=== PATIENT | male | born 1955 | race African-American/Black ===

== ENCOUNTER 2017-06-12 06:55 | Inpatient (IN) | payer MEDICARE, BC, MEDICAID ==
[2017-06-12 07:25] LABS: ADD MAN DIFF? NO
[2017-06-12 07:29] LABS: WHITE BLOOD COUNT 6.7 10^3/ul (4.8-10.8)
[2017-06-12 07:29] LABS: BASOPHILS % 0.4 % (0.0-2.0); EOSINOPHILS # 0.1 10^3/ul (0.0-0.5); EOSINOPHILS % 1.6 % (0.0-7.0); HEMATOCRIT 40.1 % (42.0-52.0); HEMOGLOBIN 13.2 g/dl (14.0-18.0); LYMPHOCYTES # 1.3 10^3/ul (0.8-2.9); LYMPHOCYTES % 19.1 % (15.0-51.0); MEAN CORPUSCULAR HGB CONC 32.9 g/dl (32.0-37.0); MEAN CORPUSCULAR VOLUME 88.1 fl (82.0-101.0); MEAN PLATELET VOLUME 11.7 fl (7.4-10.4); MONOCYTE # 0.5 10^3/ul (0.3-0.9); MONOCYTES % 7.8 % (0.0-11.0); NEUTROPHIL # 4.7 10^3/ul (1.6-7.5); PLATELET COUNT 194 10^3/UL (140-415); RED BLOOD COUNT 4.55 10^6/ul (4.70-6.10); RED CELL DISTRIBUTION WIDTH 14.1 % (11.5-14.5)
[2017-06-12] MEDS: ASPIRIN 81 MG TAB PO (07:29)
[2017-06-12 07:48] LABS: ALANINE AMINOTRANSFERASE 20 IU/L (13-69); ALBUMIN 4.1 g/dl (3.3-4.9); ALBUMIN/GLOBULIN RATIO 1.36; ALKALINE PHOSPHATASE 95 IU/L (42-121); ANION GAP 20 (8-16); ASPARTATE AMINO TRANSFERASE 13 IU/L (15-46); BILIRUBIN,INDIRECT 0.2 mg/dl (0-1.1); BILIRUBIN,TOTAL 0.2 mg/dl (0.2-1.3); BLOOD UREA NITROGEN 14 mg/dl (7-20); CALCIUM 9.4 mg/dl (8.4-10.2); CARBON DIOXIDE 21 mmol/L (21-31); CHLORIDE 109 mmol/L (97-110); CREATININE 1.05 mg/dl (0.61-1.24); GLUCOSE 125 mg/dl (70-220); INR 1.02; POTASSIUM 4.1 mmol/L (3.5-5.1); PROTIME 13.5 Sec (11.9-14.9); PT RATIO 1.1; SODIUM 146 mmol/L (135-144); TOTAL PROTEIN 7.1 g/dl (6.1-8.1)
[2017-06-12 07:59] LABS: B-TYPE NATRIURETIC PEPTIDE 66 PG/ML (0-125)
[2017-06-12 08:01] LABS: TROPONIN-I < 0.012 ng/ml (0.00-0.12)
[2017-06-12] MEDS: KETOROLAC 15 MG INJ IV (09:22)
[2017-06-12] MEDS ORDERED: DOCUSATE SODIUM 100 MG CAP PO (11:30)
[2017-06-12] MEDS ORDERED: BISACODYL (EC) 5 MG TAB PO (11:30)
[2017-06-12] MEDS ORDERED: MAGNESIUM HYDROXIDE 30ML CUP PO (11:30)
[2017-06-12] MEDS ORDERED: NACL 0.9% 3 ML SYG IV (11:30)
[2017-06-12] MEDS ORDERED: ACETAMINOPHEN 325 MG TAB PO ×2 (11:30)
[2017-06-12] MEDS ORDERED: HYDROCODONE/APAP (5/325) TAB PO (11:30)
[2017-06-12] MEDS: HYPOGLYCEMIA PROTOCOL when Glucose is <70 mg/dL or symptomatic <90 mg/dL. XX (11:30)
[2017-06-12] MEDS ORDERED: ONDANSETRON 4 MG INJ IV (11:30)
[2017-06-12] MEDS: Discontinue current oral sulfonylureas (glyburide, glipizide, and/or glimepiride) prior to XX (11:30)
[2017-06-12 11:35] LABS: D-DIMER < 220.00 ng/ml (<460)
[2017-06-12] MEDS: INSULIN ASPART [NOVOLOG] 3 ML PEN SC ×3 (12:00→20:49)
[2017-06-12] MEDS ORDERED: DEXTROSE 50% 50 ML SYRINGE IV ×2 (12:30)
[2017-06-12] MEDS ORDERED: GLUCOSE GEL 15 GRAM TUBE BUCCAL (12:30)
[2017-06-12] MEDS ORDERED: GLUCOSE GEL 15 GRAM TUBE PO ×2 (12:30)
[2017-06-12] MEDS ORDERED: GLUCAGON 1 MG INJ IM (12:30)
[2017-06-12] MEDS: BRIMONIDINE 0.2% 5 ML BTL BOTH EYES ×2 (14:00→22:25)
[2017-06-12 15:17] LABS: CREATINE KINASE 57 IU/L (23-200)
[2017-06-12 15:38] LABS: CK-MB 0.59 ng/ml (0.0-2.4); TROPONIN-I < 0.012 ng/ml (0.00-0.12)
[2017-06-12] MEDS ORDERED: morphine 2 MG INJ IV (17:00)
[2017-06-12] MEDS: morphine 2 MG INJ IV ×2 (18:18→22:26)
[2017-06-12] MEDS: APIXABAN 5 MG TABLET PO (20:48)
[2017-06-12] MEDS: ATORVASTATIN 10 MG TAB PO (20:48)
[2017-06-12] MEDS ORDERED: TRAVOPROST 0.004% 2.5 ML OPH BOTH EYES (21:00)
[2017-06-12] MEDS: DORZOLAMIDE/TIMOLOL 10 ML OPH BOTH EYES (21:00)
[2017-06-12] MEDS: LATANOPROST 0.005% 2.5 ML OPH BOTH EYES (21:47)
[2017-06-13 01:21] LABS: CREATINE KINASE 51 IU/L (23-200)
[2017-06-13 01:34] LABS: CK INDEX 1.1
[2017-06-13 01:35] LABS: CK-MB 0.57 ng/ml (0.0-2.4); TROPONIN-I < 0.012 ng/ml (0.00-0.12)
[2017-06-13] MEDS: ACCU-CHEK XX (02:00)
[2017-06-13] MEDS: BRIMONIDINE 0.2% 5 ML BTL BOTH EYES ×3 (05:43→23:26)
[2017-06-13 06:08] LABS: ADD MAN DIFF? NO
[2017-06-13 06:14] LABS: BASOPHILS % 0.6 % (0.0-2.0); EOSINOPHILS # 0.2 10^3/ul (0.0-0.5); EOSINOPHILS % 2.8 % (0.0-7.0); HEMOGLOBIN 11.9 g/dl (14.0-18.0); LYMPHOCYTES # 1.5 10^3/ul (0.8-2.9); LYMPHOCYTES % 27.3 % (15.0-51.0); MEAN CORPUSCULAR HEMOGLOBIN 28.3 pg (29.0-33.0); MEAN CORPUSCULAR HGB CONC 32.2 g/dl (32.0-37.0); MEAN CORPUSCULAR VOLUME 88.1 fl (82.0-101.0); MEAN PLATELET VOLUME 11.7 fl (7.4-10.4); MONOCYTE # 0.6 10^3/ul (0.3-0.9); MONOCYTES % 10.8 % (0.0-11.0); NEUTROPHIL # 3.1 10^3/ul (1.6-7.5); NEUTROPHILS % 58.1 % (39.0-77.0); PLATELET COUNT 167 10^3/UL (140-415); RED CELL DISTRIBUTION WIDTH 14.4 % (11.5-14.5)
[2017-06-13 06:14] LABS: WHITE BLOOD COUNT 5.4 10^3/ul (4.8-10.8)
[2017-06-13 06:28] LABS: HEMOGLOBIN A1C 6.6 % (0-5.9)
[2017-06-13 06:32] LABS: CREATINE KINASE 46 IU/L (23-200)
[2017-06-13 06:42] LABS: CK INDEX 1.3
[2017-06-13 06:45] LABS: CK-MB 0.58 ng/ml (0.0-2.4); TROPONIN-I < 0.012 ng/ml (0.00-0.12)
[2017-06-13] MEDS: INSULIN ASPART [NOVOLOG] 3 ML PEN SC ×4 (08:00→20:40)
[2017-06-13 08:16] LABS: ANION GAP 13 (8-16); BLOOD UREA NITROGEN 16 mg/dl (7-20); CALCIUM 9.1 mg/dl (8.4-10.2); CARBON DIOXIDE 22 mmol/L (21-31); CHLORIDE 110 mmol/L (97-110); CHOL/HDL RATIO 5.4 RATIO; CHOLESTEROL 153 mg/dl (100-200); CREATININE 0.99 mg/dl (0.61-1.24); GLUCOSE 115 mg/dl (70-220); HDL CHOLESTEROL 28 mg/dl (30-78); LDL CHOLESTEROL,CALCULATED 92 mg/dl; MAGNESIUM 2.1 mg/dl (1.7-2.5); POTASSIUM 4.1 mmol/L (3.5-5.1); SODIUM 141 mmol/L (135-144); TRIGLYCERIDES 167 mg/dl (0-149)
[2017-06-13] MEDS: TAMSULOSIN (SR) 0.4 MG CAP PO (08:54)
[2017-06-13] MEDS: APIXABAN 5 MG TABLET PO ×2 (08:54→20:32)
[2017-06-13] MEDS: morphine 2 MG INJ IV ×2 (08:54→20:31)
[2017-06-13] MEDS: DORZOLAMIDE/TIMOLOL 10 ML OPH BOTH EYES ×2 (10:50→20:36)
[2017-06-13 11:50] LABS: CREATINE KINASE 53 IU/L (23-200)
[2017-06-13 12:03] LABS: CK INDEX 1.3
[2017-06-13 12:15] LABS: CK-MB 0.68 ng/ml (0.0-2.4); TROPONIN-I < 0.012 ng/ml (0.00-0.12)
[2017-06-13] MEDS: ATORVASTATIN 10 MG TAB PO (20:31)
[2017-06-13] MEDS: LATANOPROST 0.005% 2.5 ML OPH BOTH EYES (20:32)
[2017-06-14] MEDS: morphine 2 MG INJ IV ×5 (00:44→23:21)
[2017-06-14] MEDS: ACCU-CHEK XX (02:00)
[2017-06-14] MEDS: BRIMONIDINE 0.2% 5 ML BTL BOTH EYES ×3 (06:00→23:09)
[2017-06-14] MEDS: INSULIN ASPART [NOVOLOG] 3 ML PEN SC ×4 (08:00→21:00)
[2017-06-14 08:01] LABS: ANION GAP 16 (8-16); BLOOD UREA NITROGEN 14 mg/dl (7-20); CALCIUM 9.1 mg/dl (8.4-10.2); CARBON DIOXIDE 23 mmol/L (21-31); CHLORIDE 108 mmol/L (97-110); CREATININE 1.02 mg/dl (0.61-1.24); GLUCOSE 97 mg/dl (70-220); PHOSPHORUS 3.9 mg/dl (2.5-4.9); POTASSIUM 3.7 mmol/L (3.5-5.1); SODIUM 143 mmol/L (135-144)
[2017-06-14] MEDS: APIXABAN 5 MG TABLET PO ×2 (08:45→20:57)
[2017-06-14] MEDS: TAMSULOSIN (SR) 0.4 MG CAP PO (08:45)
[2017-06-14] MEDS: DORZOLAMIDE/TIMOLOL/PF 0.2 ML DROPERETTE BOTH EYES ×2 (12:17→23:10)
[2017-06-14] MEDS: ATORVASTATIN 10 MG TAB PO (20:57)
[2017-06-14] MEDS: LATANOPROST 0.005% 2.5 ML OPH BOTH EYES (23:10)
[2017-06-15] MEDS: ACCU-CHEK XX (02:00)
[2017-06-15] MEDS: morphine 2 MG INJ IV ×4 (03:38→18:34)
[2017-06-15] MEDS: BRIMONIDINE 0.2% 5 ML BTL BOTH EYES ×3 (06:37→21:58)
[2017-06-15] MEDS: INSULIN ASPART [NOVOLOG] 3 ML PEN SC ×4 (08:00→21:00)
[2017-06-15] MEDS: TAMSULOSIN (SR) 0.4 MG CAP PO (08:31)
[2017-06-15] MEDS: DORZOLAMIDE/TIMOLOL/PF 0.2 ML DROPERETTE BOTH EYES ×2 (08:31→21:00)
[2017-06-15] MEDS: APIXABAN 5 MG TABLET PO ×2 (08:31→21:00)
[2017-06-15] MEDS: LATANOPROST 0.005% 2.5 ML OPH BOTH EYES (21:58)
[2017-06-15] MEDS: ATORVASTATIN 10 MG TAB PO (21:58)
[2017-06-16] MEDS: morphine 2 MG INJ IV ×5 (00:57→22:55)
[2017-06-16] MEDS: ACCU-CHEK XX (02:00)
[2017-06-16] MEDS: BRIMONIDINE 0.2% 5 ML BTL BOTH EYES ×4 (06:34→22:55)
[2017-06-16] MEDS: INSULIN ASPART [NOVOLOG] 3 ML PEN SC ×4 (08:00→21:00)
[2017-06-16] MEDS: TAMSULOSIN (SR) 0.4 MG CAP PO (08:07)
[2017-06-16] MEDS: DORZOLAMIDE/TIMOLOL/PF 0.2 ML DROPERETTE BOTH EYES ×2 (08:07→21:22)
[2017-06-16] MEDS: APIXABAN 5 MG TABLET PO ×2 (08:07→21:22)
[2017-06-16] MEDS: ATORVASTATIN 10 MG TAB PO (21:22)
[2017-06-16] MEDS: LATANOPROST 0.005% 2.5 ML OPH BOTH EYES (21:22)
[2017-06-17] MEDS: ACCU-CHEK XX (02:00)
[2017-06-17] MEDS: morphine 2 MG INJ IV ×5 (03:30→22:30)
[2017-06-17] MEDS: INSULIN ASPART [NOVOLOG] 3 ML PEN SC ×4 (08:00→20:40)
[2017-06-17] MEDS: APIXABAN 5 MG TABLET PO ×2 (08:31→20:39)
[2017-06-17] MEDS: DORZOLAMIDE/TIMOLOL/PF 0.2 ML DROPERETTE BOTH EYES ×2 (08:31→20:39)
[2017-06-17] MEDS: TAMSULOSIN (SR) 0.4 MG CAP PO (08:31)
[2017-06-17] MEDS: BRIMONIDINE 0.2% 5 ML BTL BOTH EYES ×2 (12:39→20:39)
[2017-06-17] MEDS: ATORVASTATIN 10 MG TAB PO (20:39)
[2017-06-17] MEDS: LATANOPROST 0.005% 2.5 ML OPH BOTH EYES (20:40)
[2017-06-18] MEDS: ACCU-CHEK XX (02:00)
[2017-06-18] MEDS: morphine 2 MG INJ IV (03:47)
[2017-06-18] MEDS: INSULIN ASPART [NOVOLOG] 3 ML PEN SC ×2 (08:00→11:22)
[2017-06-18] MEDS: BRIMONIDINE 0.2% 5 ML BTL BOTH EYES (08:20)
[2017-06-18] MEDS: APIXABAN 5 MG TABLET PO (08:20)
[2017-06-18] MEDS: DORZOLAMIDE/TIMOLOL/PF 0.2 ML DROPERETTE BOTH EYES (08:20)
[2017-06-18] MEDS: TAMSULOSIN (SR) 0.4 MG CAP PO (08:20)
== END 2017-06-18 14:05 | disposition home or self-care (01) | DRG 313 ==
LOC: E/R 06:55 → MS4 11:51
DX: R07.89 Other chest pain (principal); I44.1 Atrioventricular block, second degree; R00.1 Bradycardia, unspecified; I10 Essential (primary) hypertension; Z86.711 Personal history of pulmonary embolism; Z95.828 Presence of other vascular implants and grafts; E78.5 Hyperlipidemia, unspecified; H40.9 Unspecified glaucoma; N40.0 Benign prostatic hyperplasia without lower urinary tract symptoms; Z79.01 Long term (current) use of anticoagulants
CPT/HCPCS: 36415; 71045; 80048; 80053; 80061; 82550; 82553; 82962; 83036; 83735; 83880; 84100; 84443; 84484; 85025; 85378; 85610; 93005; 93306; 96374; 99285-25; G0378

== ENCOUNTER 2017-07-15 18:12 | Emergency (ER) | payer MEDICARE, BC | END 2017-07-15 18:28 | disposition left against medical advice (07) | LOC: E/R 18:12 | DX: R07.9 Chest pain, unspecified (principal); G89.4 Chronic pain syndrome; E11.9 Type 2 diabetes mellitus without complications; Z79.84 Long term (current) use of oral hypoglycemic drugs | CPT/HCPCS: 93005; 99283-25 ==

== ENCOUNTER → 2017-09-22 13:00 | Inpatient (IN) | payer OTHER, BC, MEDICARE ==
[2017-09-21] MEDS: HEPARIN 5,000 UNIT/0.5 ML VIAL SC (00:30)
[2017-09-21] MEDS: DEXTROSE 5%-0.45% NACL 1,000 ML IV ×2 (00:45→12:48)
[2017-09-21] MEDS: INSULIN ASPART [NOVOLOG] 3 ML PEN SC ×6 (01:00→20:28)
[2017-09-21 01:12] LABS: ADD MAN DIFF? NO
[2017-09-21 01:17] LABS: BASOPHILS % 0.5 % (0.0-2.0); EOSINOPHILS # 0.2 10^3/ul (0.0-0.5); EOSINOPHILS % 3.8 % (0.0-7.0); HEMATOCRIT 34.8 % (42.0-52.0); HEMOGLOBIN 10.9 g/dl (14.0-18.0); LYMPHOCYTES # 1.3 10^3/ul (0.8-2.9); LYMPHOCYTES % 23.6 % (15.0-51.0); MEAN CORPUSCULAR HEMOGLOBIN 27.2 pg (29.0-33.0); MEAN CORPUSCULAR HGB CONC 31.3 g/dl (32.0-37.0); MEAN CORPUSCULAR VOLUME 86.8 fl (82.0-101.0); MEAN PLATELET VOLUME 11.6 fl (7.4-10.4); MONOCYTE # 0.7 10^3/ul (0.3-0.9); MONOCYTES % 13.2 % (0.0-11.0); NEUTROPHIL # 3.3 10^3/ul (1.6-7.5); NEUTROPHILS % 58.7 % (39.0-77.0); PLATELET COUNT 179 10^3/UL (140-415); RED BLOOD COUNT 4.01 10^6/ul (4.70-6.10); RED CELL DISTRIBUTION WIDTH 14.5 % (11.5-14.5)
[2017-09-21 01:17] LABS: WHITE BLOOD COUNT 5.5 10^3/ul (4.8-10.8)
[2017-09-21 01:42] LABS: ALANINE AMINOTRANSFERASE 22 IU/L (13-69); ALBUMIN 3.4 g/dl (3.3-4.9); ALKALINE PHOSPHATASE 54 IU/L (42-121); ANION GAP 11 (8-16); ASPARTATE AMINO TRANSFERASE 14 IU/L (15-46); BILIRUBIN,INDIRECT 0.4 mg/dl (0-1.1); BILIRUBIN,TOTAL 0.4 mg/dl (0.2-1.3); BLOOD UREA NITROGEN 12 mg/dl (7-20); CALCIUM 8.8 mg/dl (8.4-10.2); CARBON DIOXIDE 25 mmol/L (21-31); CHLORIDE 108 mmol/L (97-110); CHOL/HDL RATIO 4.3 RATIO; CHOLESTEROL 142 mg/dl (100-200); CREATINE KINASE 66 IU/L (23-200); GLUCOSE 130 mg/dl (70-220); HDL CHOLESTEROL 33 mg/dl (30-78); LDL CHOLESTEROL,CALCULATED 73 mg/dl; PHOSPHORUS 3.3 mg/dl (2.5-4.9); POTASSIUM 4.1 mmol/L (3.5-5.1); SODIUM 140 mmol/L (135-144); TRIGLYCERIDES 181 mg/dl (0-149)
[2017-09-21 01:54] LABS: CK INDEX 1.2; CK-MB 0.78 ng/ml (0.0-2.4); TROPONIN-I < 0.010 ng/ml (0.000-0.120)
[2017-09-21] MEDS: ACCU-CHEK XX (02:00)
[2017-09-21 04:06] LABS: HEMOGLOBIN A1C 6.7 % (0-5.9)
[2017-09-21] MEDS: ISOSORBIDE MONONITRATE(SR)30 MG TAB PO (09:03)
[2017-09-21] MEDS: ASPIRIN (EC) 81 MG TAB PO (09:03)
[2017-09-21] MEDS: morphine 2 MG INJ IV ×4 (09:07→20:29)
[2017-09-21] MEDS: RANOLAZINE (SR) 500 MG TAB PO ×2 (11:19→20:28)
[2017-09-21] MEDS: ACETYLCYSTEINE 600 MG CAP PO ×2 (11:19→20:28)
[2017-09-21] MEDS: ENOXAPARIN 60 MG/0.6 ML SYG SC (11:29)
[2017-09-21 14:59] LABS: CREATINE KINASE 63 IU/L (23-200)
[2017-09-21 15:12] LABS: CK INDEX 0.8; CK-MB 0.53 ng/ml (0.0-2.4); TROPONIN-I < 0.010 ng/ml (0.000-0.120)
[2017-09-21] MEDS: FAMOTIDINE 20 MG TAB PO (18:17)
[2017-09-21] MEDS: predniSONE 20 MG TAB PO (18:17)
[2017-09-21] MEDS: ATORVASTATIN 20 MG TAB PO (20:30)
[2017-09-22] MEDS: predniSONE 20 MG TAB PO ×2 (01:00→07:00)
[2017-09-22] MEDS: FAMOTIDINE 20 MG TAB PO ×2 (01:00→07:00)
[2017-09-22] MEDS: INSULIN ASPART [NOVOLOG] 3 ML PEN SC ×3 (01:00→09:00)
[2017-09-22] MEDS: morphine 2 MG INJ IV ×2 (02:00→05:05)
[2017-09-22] MEDS: ACCU-CHEK XX (02:00)
[2017-09-22] MEDS: DEXTROSE 5%-0.45% NACL 1,000 ML IV (02:10)
[2017-09-22 08:30] LABS: ADD MAN DIFF? NO
[2017-09-22 08:35] LABS: ABNORMAL IP MESSAGE 1; BASOPHILS % 0.2 % (0.0-2.0); HEMATOCRIT 40.7 % (42.0-52.0); HEMOGLOBIN 12.8 g/dl (14.0-18.0); LYMPHOCYTES # 0.5 10^3/ul (0.8-2.9); LYMPHOCYTES % 5.1 % (15.0-51.0); MEAN CORPUSCULAR HEMOGLOBIN 26.9 pg (29.0-33.0); MEAN CORPUSCULAR HGB CONC 31.4 g/dl (32.0-37.0); MEAN CORPUSCULAR VOLUME 85.5 fl (82.0-101.0); MEAN PLATELET VOLUME 12.2 fl (7.4-10.4); MONOCYTE # 0.3 10^3/ul (0.3-0.9); MONOCYTES % 3.2 % (0.0-11.0); NEUTROPHIL # 9.2 10^3/ul (1.6-7.5); NEUTROPHILS % 91.2 % (39.0-77.0); PLATELET COUNT 215 10^3/UL (140-415); POSITIVE DIFF @See below; RED BLOOD COUNT 4.76 10^6/ul (4.70-6.10); RED CELL DISTRIBUTION WIDTH 14.6 % (11.5-14.5)
[2017-09-22 08:35] LABS: WHITE BLOOD COUNT 10.1 10^3/ul (4.8-10.8)
[2017-09-22 08:49] LABS: HEMOGLOBIN A1C 6.8 % (0-5.9)
[2017-09-22 08:53] LABS: INR 0.96; PROTIME 12.9 Sec (11.9-14.9)
[2017-09-22 09:00] LABS: ALANINE AMINOTRANSFERASE 21 IU/L (13-69); ALBUMIN 4.7 g/dl (3.3-4.9); ALBUMIN/GLOBULIN RATIO 1.46; ALKALINE PHOSPHATASE 63 IU/L (42-121); ANION GAP 16 (8-16); ASPARTATE AMINO TRANSFERASE 19 IU/L (15-46); BILIRUBIN,INDIRECT 0.6 mg/dl (0-1.1); BILIRUBIN,TOTAL 0.6 mg/dl (0.2-1.3); BLOOD UREA NITROGEN 14 mg/dl (7-20); CALCIUM 9.9 mg/dl (8.4-10.2); CARBON DIOXIDE 20 mmol/L (21-31); CHLORIDE 108 mmol/L (97-110); CREATININE 1.07 mg/dl (0.61-1.24); GLUCOSE 179 mg/dl (70-220); MAGNESIUM 1.8 mg/dl (1.7-2.5); POTASSIUM 4.3 mmol/L (3.5-5.1); SODIUM 140 mmol/L (135-144); TOTAL PROTEIN 7.9 g/dl (6.1-8.1)
[2017-09-22] MEDS: ACETYLCYSTEINE 600 MG CAP PO (09:00)
[2017-09-22] MEDS: HEPARIN 1000 UNITS/ML 10 ML INJ IV (09:00)
[2017-09-22] MEDS: DORZOLAMIDE/TIMOLOL 10 ML OPH BOTH EYES (09:00)
[2017-09-22] MEDS: FINASTERIDE 5 MG TAB PO (09:00)
[2017-09-22] MEDS: ISOSORBIDE MONONITRATE(SR)30 MG TAB PO (09:00)
[2017-09-22] MEDS: ASPIRIN (EC) 81 MG TAB PO (09:00)
[2017-09-22] MEDS: RANOLAZINE (SR) 500 MG TAB PO (09:00)
[2017-09-22 09:07] LABS: B-TYPE NATRIURETIC PEPTIDE 84 PG/ML (0-125)
[2017-09-22 10:13] LABS: TROPONIN-I < 0.010 ng/ml (0.000-0.120)
[~2017-09-22 13:00] MED LIST: ACETAMINOPHEN 325 MG TAB PO; BRIMONIDINE 0.2% 5 ML BTL BOTH EYES; DEXTROSE 50% 50 ML SYRINGE IV; GLUCAGON 1 MG INJ IM; GLUCOSE GEL 15 GRAM TUBE BUCCAL; GLUCOSE GEL 15 GRAM TUBE PO; HEPARIN 1000 UNITS/ML 10 ML INJ IV; HEPARIN 25000 UNITS/250 ML 250 ML IV; LATANOPROST 0.005% 2.5 ML OPH BOTH EYES; ONDANSETRON 4 MG INJ IV; TAMSULOSIN (SR) 0.4 MG CAP PO; morphine 2 MG INJ IV
== END | disposition home or self-care (01) | DRG 313 ==
PROVIDERS: Internal Medicine
DX: R07.9 Chest pain, unspecified (principal); E11.649 Type 2 diabetes mellitus with hypoglycemia without coma; E78.5 Hyperlipidemia, unspecified; H40.9 Unspecified glaucoma; N40.0 Benign prostatic hyperplasia without lower urinary tract symptoms; K21.9 Gastro-esophageal reflux disease without esophagitis; Z76.5 Malingerer [conscious simulation]; Z79.4 Long term (current) use of insulin; Z79.82 Long term (current) use of aspirin; Z79.02 Long term (current) use of antithrombotics/antiplatelets; Z91.041 Radiographic dye allergy status; Z86.711 Personal history of pulmonary embolism; Z86.718 Personal history of other venous thrombosis and embolism
CPT/HCPCS: 80053; 80061; 82550; 82553; 82962; 83036; 83735; 83880; 84100; 84443; 84484; 85025; 85610; 85730; 93005; 93306

== ENCOUNTER 2018-08-31 22:56 | Observation (INO) | payer MEDICARE, BC, OTHER ==
[2018-08-31 23:31] LABS: ADD MAN DIFF? NO
[2018-08-31 23:33] LABS: BASOPHILS % 0.5 % (0.0-2.0); EOSINOPHILS # 0.2 10^3/ul (0.0-0.5); EOSINOPHILS % 2.7 % (0.0-7.0); HEMATOCRIT 36.4 % (42.0-52.0); HEMOGLOBIN 11.8 g/dl (14.0-18.0); LYMPHOCYTES # 1.3 10^3/ul (0.8-2.9); LYMPHOCYTES % 17.1 % (15.0-51.0); MEAN CORPUSCULAR HEMOGLOBIN 28.8 pg (29.0-33.0); MEAN CORPUSCULAR HGB CONC 32.4 g/dl (32.0-37.0); MEAN CORPUSCULAR VOLUME 88.8 fl (82.0-101.0); MEAN PLATELET VOLUME 12.1 fl (7.4-10.4); MONOCYTE # 0.8 10^3/ul (0.3-0.9); MONOCYTES % 10.8 % (0.0-11.0); NEUTROPHIL # 5.1 10^3/ul (1.6-7.5); NEUTROPHILS % 68.5 % (39.0-77.0); PLATELET COUNT 156 10^3/UL (140-415); RED CELL DISTRIBUTION WIDTH 14.8 % (11.5-14.5)
[2018-08-31 23:33] LABS: WHITE BLOOD COUNT 7.4 10^3/ul (4.8-10.8)
[2018-08-31 23:58] LABS: ALANINE AMINOTRANSFERASE 21 IU/L (13-69); ALBUMIN 3.7 g/dl (3.3-4.9); ALBUMIN/GLOBULIN RATIO 1.23; ALKALINE PHOSPHATASE 75 IU/L (42-121); ANION GAP 9 (5-13); ASPARTATE AMINO TRANSFERASE 20 IU/L (15-46); BILIRUBIN,INDIRECT 0.5 mg/dl (0-1.1); BILIRUBIN,TOTAL 0.5 mg/dl (0.2-1.3); BLOOD UREA NITROGEN 14 mg/dl (7-20); CALCIUM 9.2 mg/dl (8.4-10.2); CARBON DIOXIDE 25 mmol/L (21-31); CHLORIDE 109 mmol/L (97-110); CREATININE 0.95 mg/dl (0.61-1.24); Estimated GFR > 60 mL/min (>60); GLUCOSE 147 mg/dl (70-220); POTASSIUM 3.5 mmol/L (3.5-5.1); SODIUM 143 mmol/L (135-144); TOTAL PROTEIN 6.7 g/dl (6.1-8.1)
[2018-09-01 00:09] LABS: B-TYPE NATRIURETIC PEPTIDE 164 PG/ML (0-125); TROPONIN-I < 0.012 ng/ml (0.000-0.120)
[2018-09-01] MEDS: ONDANSETRON 4 MG INJ IV ×2 (00:09→04:32)
[2018-09-01] MEDS: morphine 4 MG/ML VIAL IV (00:09)
[2018-09-01] MEDS ORDERED: NACL 0.9% 3 ML SYG IV (01:30)
[2018-09-01] MEDS ORDERED: NITROGLYCERIN (SL) 0.4 MG TAB SL (01:30)
[2018-09-01] MEDS ORDERED: ONDANSETRON 4 MG INJ IV (01:30)
[2018-09-01] MEDS ORDERED: ACETAMINOPHEN 325 MG TAB PO ×2 (01:30)
[2018-09-01] MEDS ORDERED: BISACODYL (EC) 5 MG TAB PO (01:30)
[2018-09-01] MEDS: morphine 2 MG INJ IV ×3 (04:25→21:28)
[2018-09-01] MEDS: BRIMONIDINE 0.2% 5 ML BTL BOTH EYES ×3 (06:48→21:28)
[2018-09-01] MEDS: HEPARIN 5,000 UNIT/1 ML VIAL SC (06:56)
[2018-09-01 08:11] LABS: ADD MAN DIFF? NO
[2018-09-01 08:21] LABS: WHITE BLOOD COUNT 6.2 10^3/ul (4.8-10.8)
[2018-09-01 08:21] LABS: BASOPHILS % 0.6 % (0.0-2.0); EOSINOPHILS # 0.2 10^3/ul (0.0-0.5); EOSINOPHILS % 2.4 % (0.0-7.0); HEMATOCRIT 35.4 % (42.0-52.0); HEMOGLOBIN 11.2 g/dl (14.0-18.0); LYMPHOCYTES # 1.1 10^3/ul (0.8-2.9); LYMPHOCYTES % 17.9 % (15.0-51.0); MEAN CORPUSCULAR HEMOGLOBIN 28.1 pg (29.0-33.0); MEAN CORPUSCULAR HGB CONC 31.6 g/dl (32.0-37.0); MEAN CORPUSCULAR VOLUME 88.9 fl (82.0-101.0); MEAN PLATELET VOLUME 12.8 fl (7.4-10.4); MONOCYTE # 0.7 10^3/ul (0.3-0.9); MONOCYTES % 11.9 % (0.0-11.0); NEUTROPHIL # 4.1 10^3/ul (1.6-7.5); NEUTROPHILS % 66.7 % (39.0-77.0); PLATELET COUNT 145 10^3/UL (140-415); RED BLOOD COUNT 3.98 10^6/ul (4.70-6.10); RED CELL DISTRIBUTION WIDTH 14.8 % (11.5-14.5)
[2018-09-01 08:45] LABS: ALANINE AMINOTRANSFERASE 22 IU/L (13-69); ALBUMIN 3.2 g/dl (3.3-4.9); ALBUMIN/GLOBULIN RATIO 1.14; ALKALINE PHOSPHATASE 71 IU/L (42-121); ANION GAP 9 (5-13); ASPARTATE AMINO TRANSFERASE 20 IU/L (15-46); BILIRUBIN,INDIRECT 0.5 mg/dl (0-1.1); BILIRUBIN,TOTAL 0.5 mg/dl (0.2-1.3); BLOOD UREA NITROGEN 13 mg/dl (7-20); CALCIUM 8.6 mg/dl (8.4-10.2); CARBON DIOXIDE 24 mmol/L (21-31); CHLORIDE 108 mmol/L (97-110); CHOL/HDL RATIO 3.5 RATIO; CHOLESTEROL 140 mg/dl (100-200); CREATINE KINASE 123 IU/L (23-200); CREATININE 0.91 mg/dl (0.61-1.24); Estimated GFR > 60 mL/min (>60); GLUCOSE 263 mg/dl (70-220); HDL CHOLESTEROL 39 mg/dl (30-78); LDL CHOLESTEROL,CALCULATED 62 mg/dl; MAGNESIUM 1.8 mg/dl (1.7-2.5); POTASSIUM 3.6 mmol/L (3.5-5.1); SODIUM 141 mmol/L (135-144); TRIGLYCERIDES 195 mg/dl (0-149)
[2018-09-01 08:55] LABS: CK INDEX 1.6; CK-MB 1.94 ng/ml (0.0-2.4); TROPONIN-I < 0.012 ng/ml (0.000-0.120)
[2018-09-01 09:13] LABS: HEMOGLOBIN A1C 6.7 % (0-5.9)
[2018-09-01] MEDS: DUTASTERIDE 0.5 MG CAP PO (09:27)
[2018-09-01] MEDS: DORZOLAMIDE/TIMOLOL/PF 0.2 ML DROPERETTE BOTH EYES ×2 (09:27→20:51)
[2018-09-01 11:29] LABS: CREATINE KINASE 119 IU/L (23-200)
[2018-09-01 11:39] LABS: CK INDEX 1.5; CK-MB 1.77 ng/ml (0.0-2.4)
[2018-09-01 11:43] LABS: TROPONIN-I < 0.012 ng/ml (0.000-0.120)
[2018-09-01] MEDS: ATORVASTATIN 40 MG TAB PO (20:51)
[2018-09-01] MEDS: TAMSULOSIN (SR) 0.4 MG CAP PO (20:51)
[2018-09-01] MEDS: LATANOPROST 0.005% 2.5 ML OPH BOTH EYES (20:52)
[2018-09-01] MEDS ORDERED: TRAVOPROST 0.004% 2.5 ML OPH BOTH EYES (21:00)
[2018-09-01] MEDS: ENOXAPARIN 100 MG/ML SYG SC (21:11)
[2018-09-02] MEDS: morphine 2 MG INJ IV ×2 (04:25→10:35)
[2018-09-02] MEDS: BRIMONIDINE 0.2% 5 ML BTL BOTH EYES ×3 (05:35→22:00)
[2018-09-02 06:04] LABS: ADD MAN DIFF? NO
[2018-09-02 06:10] LABS: WHITE BLOOD COUNT 6.1 10^3/ul (4.8-10.8)
[2018-09-02 06:10] LABS: BASOPHILS % 0.5 % (0.0-2.0); EOSINOPHILS # 0.2 10^3/ul (0.0-0.5); EOSINOPHILS % 2.8 % (0.0-7.0); HEMATOCRIT 39.1 % (42.0-52.0); HEMOGLOBIN 12.4 g/dl (14.0-18.0); MEAN CORPUSCULAR HGB CONC 31.7 g/dl (32.0-37.0); MEAN CORPUSCULAR VOLUME 88.3 fl (82.0-101.0); MEAN PLATELET VOLUME 11.6 fl (7.4-10.4); MONOCYTE # 0.6 10^3/ul (0.3-0.9); MONOCYTES % 10.4 % (0.0-11.0); NEUTROPHIL # 4.2 10^3/ul (1.6-7.5); NEUTROPHILS % 68.8 % (39.0-77.0); PLATELET COUNT 154 10^3/UL (140-415); RED BLOOD COUNT 4.43 10^6/ul (4.70-6.10); RED CELL DISTRIBUTION WIDTH 14.7 % (11.5-14.5)
[2018-09-02 06:27] LABS: CREATINE KINASE 91 IU/L (23-200)
[2018-09-02 06:32] LABS: CHOL/HDL RATIO 3.6 RATIO; LDL CHOLESTEROL,CALCULATED 77 mg/dl
[2018-09-02 06:33] LABS: MAGNESIUM 1.9 mg/dl (1.7-2.5)
[2018-09-02 06:33] LABS: CHOLESTEROL 165 mg/dl (100-200); HDL CHOLESTEROL 45 mg/dl (30-78); TRIGLYCERIDES 213 mg/dl (0-149)
[2018-09-02 06:37] LABS: ALANINE AMINOTRANSFERASE 27 IU/L (13-69); ALBUMIN 3.5 g/dl (3.3-4.9); ALBUMIN/GLOBULIN RATIO 1.09; ALKALINE PHOSPHATASE 67 IU/L (42-121); ANION GAP 8 (5-13); ASPARTATE AMINO TRANSFERASE 20 IU/L (15-46); BILIRUBIN,INDIRECT 0.6 mg/dl (0-1.1); BILIRUBIN,TOTAL 0.6 mg/dl (0.2-1.3); BLOOD UREA NITROGEN 13 mg/dl (7-20); CARBON DIOXIDE 23 mmol/L (21-31); CHLORIDE 107 mmol/L (97-110); CREATININE 0.98 mg/dl (0.61-1.24); Estimated GFR > 60 mL/min (>60); GLUCOSE 168 mg/dl (70-220); SODIUM 138 mmol/L (135-144); TOTAL PROTEIN 6.7 g/dl (6.1-8.1)
[2018-09-02 06:40] LABS: CK INDEX 1.5; CK-MB 1.33 ng/ml (0.0-2.4); TROPONIN-I < 0.012 ng/ml (0.000-0.120)
[2018-09-02] MEDS: DORZOLAMIDE/TIMOLOL/PF 0.2 ML DROPERETTE BOTH EYES ×2 (09:25→21:11)
[2018-09-02] MEDS: DUTASTERIDE 0.5 MG CAP PO (09:25)
[2018-09-02] MEDS: ENOXAPARIN 100 MG/ML SYG SC ×2 (09:26→21:18)
[2018-09-02] MEDS: TAMSULOSIN (SR) 0.4 MG CAP PO (21:11)
[2018-09-02] MEDS: ATORVASTATIN 40 MG TAB PO (21:11)
[2018-09-02] MEDS: LATANOPROST 0.005% 2.5 ML OPH BOTH EYES (21:12)
[2018-09-03] MEDS: BRIMONIDINE 0.2% 5 ML BTL BOTH EYES ×3 (05:52→21:20)
[2018-09-03] MEDS: DUTASTERIDE 0.5 MG CAP PO (08:15)
[2018-09-03] MEDS: DORZOLAMIDE/TIMOLOL/PF 0.2 ML DROPERETTE BOTH EYES ×2 (08:15→21:16)
[2018-09-03] MEDS: ENOXAPARIN 100 MG/ML SYG SC ×2 (08:21→21:33)
[2018-09-03] MEDS: DOCUSATE SODIUM 100 MG CAP PO (08:24)
[2018-09-03 14:17] LABS: ADD MAN DIFF? NO
[2018-09-03 14:18] LABS: WHITE BLOOD COUNT 7.5 10^3/ul (4.8-10.8)
[2018-09-03 14:18] LABS: BASOPHILS % 0.5 % (0.0-2.0); EOSINOPHILS # 0.2 10^3/ul (0.0-0.5); EOSINOPHILS % 2.3 % (0.0-7.0); HEMATOCRIT 42.2 % (42.0-52.0); HEMOGLOBIN 13.6 g/dl (14.0-18.0); LYMPHOCYTES # 1.4 10^3/ul (0.8-2.9); LYMPHOCYTES % 19.2 % (15.0-51.0); MEAN CORPUSCULAR HEMOGLOBIN 28.7 pg (29.0-33.0); MEAN CORPUSCULAR HGB CONC 32.2 g/dl (32.0-37.0); MEAN PLATELET VOLUME 12.4 fl (7.4-10.4); MONOCYTE # 0.7 10^3/ul (0.3-0.9); MONOCYTES % 9.9 % (0.0-11.0); NEUTROPHIL # 5.1 10^3/ul (1.6-7.5); NEUTROPHILS % 67.8 % (39.0-77.0); PLATELET COUNT 189 10^3/UL (140-415); RED BLOOD COUNT 4.74 10^6/ul (4.70-6.10); RED CELL DISTRIBUTION WIDTH 14.6 % (11.5-14.5)
[2018-09-03 14:41] LABS: ALANINE AMINOTRANSFERASE 29 IU/L (13-69); ALBUMIN 4.1 g/dl (3.3-4.9); ALBUMIN/GLOBULIN RATIO 1.13; ALKALINE PHOSPHATASE 70 IU/L (42-121); ANION GAP 11 (5-13); ASPARTATE AMINO TRANSFERASE 30 IU/L (15-46); BILIRUBIN,INDIRECT 0.6 mg/dl (0-1.1); BILIRUBIN,TOTAL 0.6 mg/dl (0.2-1.3); BLOOD UREA NITROGEN 17 mg/dl (7-20); CALCIUM 9.8 mg/dl (8.4-10.2); CARBON DIOXIDE 20 mmol/L (21-31); CHLORIDE 105 mmol/L (97-110); CREATININE 1.05 mg/dl (0.61-1.24); Estimated GFR > 60 mL/min (>60); GLUCOSE 253 mg/dl (70-220); SODIUM 136 mmol/L (135-144); TOTAL PROTEIN 7.7 g/dl (6.1-8.1)
[2018-09-03] MEDS: LATANOPROST 0.005% 2.5 ML OPH BOTH EYES (21:16)
[2018-09-03] MEDS: ATORVASTATIN 40 MG TAB PO (21:19)
[2018-09-03] MEDS: TAMSULOSIN (SR) 0.4 MG CAP PO (21:19)
[2018-09-03] MEDS: traMADol 50 MG TAB PO (22:39)
[2018-09-04 04:58] LABS: ADD MAN DIFF? NO
[2018-09-04] MEDS: BRIMONIDINE 0.2% 5 ML BTL BOTH EYES (05:12)
[2018-09-04 05:16] LABS: BASOPHILS % 0.6 % (0.0-2.0); EOSINOPHILS # 0.2 10^3/ul (0.0-0.5); EOSINOPHILS % 2.6 % (0.0-7.0); HEMOGLOBIN 12.5 g/dl (14.0-18.0); LYMPHOCYTES # 1.6 10^3/ul (0.8-2.9); LYMPHOCYTES % 22.5 % (15.0-51.0); MEAN CORPUSCULAR HEMOGLOBIN 28.7 pg (29.0-33.0); MEAN CORPUSCULAR HGB CONC 32.1 g/dl (32.0-37.0); MEAN CORPUSCULAR VOLUME 89.7 fl (82.0-101.0); MEAN PLATELET VOLUME 11.7 fl (7.4-10.4); MONOCYTE # 0.8 10^3/ul (0.3-0.9); MONOCYTES % 11.4 % (0.0-11.0); NEUTROPHIL # 4.4 10^3/ul (1.6-7.5); NEUTROPHILS % 62.8 % (39.0-77.0); PLATELET COUNT 165 10^3/UL (140-415); RED BLOOD COUNT 4.35 10^6/ul (4.70-6.10); RED CELL DISTRIBUTION WIDTH 14.6 % (11.5-14.5)
[2018-09-04 05:58] LABS: ALANINE AMINOTRANSFERASE 34 IU/L (13-69); ALBUMIN 3.6 g/dl (3.3-4.9); ALBUMIN/GLOBULIN RATIO 1.16; ALKALINE PHOSPHATASE 57 IU/L (42-121); ANION GAP 6 (5-13); ASPARTATE AMINO TRANSFERASE 38 IU/L (15-46); BILIRUBIN,INDIRECT 0.4 mg/dl (0-1.1); BILIRUBIN,TOTAL 0.4 mg/dl (0.2-1.3); BLOOD UREA NITROGEN 19 mg/dl (7-20); CALCIUM 9.3 mg/dl (8.4-10.2); CARBON DIOXIDE 25 mmol/L (21-31); CHLORIDE 108 mmol/L (97-110); CREATININE 1.02 mg/dl (0.61-1.24); Estimated GFR > 60 mL/min (>60); GLUCOSE 132 mg/dl (70-220); POTASSIUM 3.8 mmol/L (3.5-5.1); SODIUM 139 mmol/L (135-144); TOTAL PROTEIN 6.7 g/dl (6.1-8.1)
[2018-09-04] MEDS: DUTASTERIDE 0.5 MG CAP PO (09:04)
[2018-09-04] MEDS: DORZOLAMIDE/TIMOLOL/PF 0.2 ML DROPERETTE BOTH EYES (09:04)
[2018-09-04] MEDS: ENOXAPARIN 100 MG/ML SYG SC (09:05)
== END 2018-09-04 12:00 | disposition home or self-care (01) ==
LOC: E/R 22:56 → TEL 09-01 01:17 → 5EC 09-03 21:59
DX: R07.9 Chest pain, unspecified (principal); I27.82 Chronic pulmonary embolism; Z79.01 Long term (current) use of anticoagulants; E11.9 Type 2 diabetes mellitus without complications; I25.10 Atherosclerotic heart disease of native coronary artery without angina pectoris; I10 Essential (primary) hypertension; Z95.0 Presence of cardiac pacemaker; Z86.718 Personal history of other venous thrombosis and embolism; E78.5 Hyperlipidemia, unspecified; I49.5 Sick sinus syndrome; Z79.4 Long term (current) use of insulin
CPT/HCPCS: 71045; 80053; 80061; 82306; 82550; 82553; 82962; 83036; 83735; 83880; 84443; 84484; 85025; 93005; 93306; 99217; G0378

== ENCOUNTER 2018-10-07 23:58 | Emergency (ER) | payer MEDICARE, BC ==
[2018-10-08 00:35] LABS: WHITE BLOOD COUNT 6.7 10^3/ul (4.8-10.8)
[2018-10-08 00:35] LABS: ADD MAN DIFF? NO; BASOPHILS % 0.4 % (0.0-2.0); EOSINOPHILS # 0.2 10^3/ul (0.0-0.5); EOSINOPHILS % 3.1 % (0.0-7.0); HEMATOCRIT 39.2 % (42.0-52.0); HEMOGLOBIN 12.3 g/dl (14.0-18.0); LYMPHOCYTES # 1.4 10^3/ul (0.8-2.9); LYMPHOCYTES % 20.1 % (15.0-51.0); MEAN CORPUSCULAR HEMOGLOBIN 28.5 pg (29.0-33.0); MEAN CORPUSCULAR HGB CONC 31.4 g/dl (32.0-37.0); MEAN CORPUSCULAR VOLUME 90.7 fl (82.0-101.0); MEAN PLATELET VOLUME 12.1 fl (7.4-10.4); MONOCYTE # 0.7 10^3/ul (0.3-0.9); MONOCYTES % 10.3 % (0.0-11.0); NEUTROPHIL # 4.4 10^3/ul (1.6-7.5); NEUTROPHILS % 65.8 % (39.0-77.0); PLATELET COUNT 182 10^3/UL (140-415); RED BLOOD COUNT 4.32 10^6/ul (4.70-6.10); RED CELL DISTRIBUTION WIDTH 13.9 % (11.5-14.5)
[2018-10-08] MEDS: ASPIRIN 81 MG TAB PO ×2 (00:59→01:00)
[2018-10-08] MEDS: NITROGLYCERIN 2% 1 GM OINT PKT TD (01:02)
[2018-10-08 01:35] LABS: ANION GAP 8 (5-13); BLOOD UREA NITROGEN 13 mg/dl (7-20); CALCIUM 9.1 mg/dl (8.4-10.2); CARBON DIOXIDE 25 mmol/L (21-31); CHLORIDE 104 mmol/L (97-110); CREATININE 0.94 mg/dl (0.61-1.24); Estimated GFR > 60 mL/min (>60); GLUCOSE 201 mg/dl (70-220); POTASSIUM 4.1 mmol/L (3.5-5.1); SODIUM 137 mmol/L (135-144)
[2018-10-08 01:46] LABS: TROPONIN-I < 0.012 ng/ml (0.000-0.120)
[2018-10-08] MEDS ORDERED: ALBUTEROL/IPRATROPIUM (NEB) 3 ML AMP HHN (03:00)
[2018-10-08] MEDS ORDERED: NACL 0.9% 3 ML SYG IV (03:00)
[2018-10-08] MEDS ORDERED: NITROGLYCERIN (SL) 0.4 MG TAB SL (03:00)
[2018-10-08] MEDS ORDERED: ONDANSETRON 4 MG INJ IV (03:00)
[2018-10-08] MEDS ORDERED: ACETAMINOPHEN 325 MG TAB PO (03:00)
[2018-10-08] MEDS: KETOROLAC 30 MG INJ IV (03:18)
[2018-10-08 03:50] LABS: AMPHETAMINE/METHAMPHETAMINE Negative (NEGATIVE); BARBITURATES Negative (NEGATIVE); BENZODIAZEPINES Negative (NEGATIVE); CANNABINOIDS Negative (NEGATIVE); COCAINE Negative (NEGATIVE); OPIATES Positive (NEGATIVE)
[2018-10-08] MEDS: BRIMONIDINE 0.2% 5 ML BTL BOTH EYES ×2 (06:00→09:18)
[2018-10-08 07:34] LABS: CREATINE KINASE 77 IU/L (23-200)
[2018-10-08 07:36] LABS: CK INDEX 1.1; CK-MB 0.83 ng/ml (0.0-2.4); TROPONIN-I < 0.012 ng/ml (0.000-0.120)
[2018-10-08] MEDS ORDERED: DORZOLAMIDE/TIMOLOL 10 ML OPH BOTH EYES (09:00)
[2018-10-08] MEDS: ACCU-CHEK XX ×2 (09:00→11:30)
[2018-10-08] MEDS: APIXABAN 5 MG TABLET PO (09:14)
[2018-10-08] MEDS: DUTASTERIDE 0.5 MG CAP PO (09:14)
[2018-10-08] MEDS: metFORMIN 500 MG TAB PO (09:15)
[2018-10-08] MEDS: DORZOLAMIDE/TIMOLOL/PF 0.2 ML DROPERETTE BOTH EYES (09:19)
[2018-10-08] MEDS ORDERED: LATANOPROST 0.005% 2.5 ML OPH BOTH EYES (21:00)
[2018-10-08] MEDS ORDERED: ATORVASTATIN 40 MG TAB PO (21:00)
[2018-10-08] MEDS ORDERED: TAMSULOSIN (SR) 0.4 MG CAP PO (21:00)
[2018-10-08] MEDS ORDERED: TRAVOPROST 0.004% 2.5 ML OPH BOTH EYES (21:00)
== END 2018-10-08 13:04 | disposition home or self-care (01) ==
LOC: E/R 10-08 13:04
DX: D64.9 Anemia, unspecified (principal); E11.9 Type 2 diabetes mellitus without complications; I25.2 Old myocardial infarction; Z79.84 Long term (current) use of oral hypoglycemic drugs; Z95.0 Presence of cardiac pacemaker
CPT/HCPCS: 36415; 71045; 80048; 80307; 82550; 82553; 82962; 84484; 85025; 93005; 96374; 99285-25